=== PATIENT | male | born 2005 ===

== ENCOUNTER 2023-11-11 20:53 | Emergency (ER) | payer OTHER ==
[~2023-11-11] VITALS: Ht 177.8 cm; Wt 104.5 kg
[2023-11-11 20:58] VITALS: TEMP 98.5
[2023-11-11 21:51] VITALS: BP 138/85; PULSE 90; RESP 14
[2023-11-11] MEDS: TraMADol HCL 50 MG TABLET PO ONE (22:36)
== END 2023-11-11 22:42 | disposition home or self-care (01) ==
LOC: EMS 20:53
DX: S93.401A Sprain of unspecified ligament of right ankle, initial encounter (principal); W22.8XXA Striking against or struck by other objects, initial encounter; Y93.89 Activity, other specified; Y92.89 Other specified places as the place of occurrence of the external cause; Y99.8 Other external cause status
CPT/HCPCS: 99283